=== PATIENT | female | born 1980 | race Caucasian/White ===

== ENCOUNTER 2016-06-04 11:12 | Emergency (ER) | payer OTHER ==
[~2016-06-04] VITALS: Ht 157.5 cm; Wt 56.7 kg
--- NOTE | 2016-06-04 11:48 | ED UPPER/LOWER EXTREMITY COMPL ---
History of Present Illness General Chief Complaint: General Adult Stated Complaint: RIGO HAND NUMBNESS, DIZZY Source: patient, old records Exam Limitations: no limitations Vital Signs & Intake/Output Vital Signs & Intake/Output Vital Signs Date Time Temp Pulse Resp B/P Pulse O2 O2 Flow FiO2 Ox Delivery Rate 06/04 1346 96.7 53 16 120/67 100 Room Air 06/04 1238 Room Air Room Air 06/04 1120 97.0 68 20 121/79 99 Room Air Allergies Coded Allergies: NO KNOWN ALLERGIES (10/02/10) Reconcile Medications Aspirin (Aspirin*) 81 MG TAB.CHEW 1 TAB PO DAILY HEART HEALTH (Reported) Triage Note: PT TO ED C/O "I JUST DON'T FEEL GOOD". PT C/O B/L HAND NUMBNESS, AND HEAD PRESSURE. PT SAW VASCULAR SURGEON LAST WEEK FOR LEFT ARM SWELLING, PT STATES SHE WAS GIVEN COMPRESSION STOCKINGS. PT TEARFUL STATING, "SOMETHING JUST ISN'T RIGHT." Triage Nurses Notes Reviewed? yes Onset: Gradual Duration: constant (x 1 year) Timing: recent history Severity: mild, moderate Severity Numbers: 5 Pain/Injury Location: Left: Arm. Method of Injury: unknown No Modifying Factors: none Associated Symptoms: swelling : No Patient currently breastfeeds: No HPI: 36-year-old female presents to the emergency room complaining of left arm swelling that she has had a gradual onset for the past greater than one year. The patient states she was seen by a vascular physician most recently this past week in [place] at which time she states she had an ultrasound performed that showed no DVT in the arm or chest wall per the patient. They also state that a chest x-ray was performed that showed no acute abnormality. She states that the arm swelling has persisted. She is not on currently any diuretics or blood thinners. The patient states she has a history of TIAs in the past. She states that she has a history of right arm swelling which resolved after taking anti- inflammatories. She denies any leg swelling chest pain shortness of breath cough hemoptysis no recent immobility. She does not smoke Past History Travel History Traveled to [place] past 21 day No Medical History Any Pertinent Medical History? see below for history Neurological: TIA Surgical History Surgical History: non-contributory Psychosocial History What is your primary language Occitan Tobacco Use: Current Daily Use Daily Tobacco Use Amount/Type: => 5 Cigarettes daily ETOH Use: denies use Illicit Drug Use: denies illicit drug use Family History Hx Contributory? No Review of Systems Review of Systems Constitutional: Reports: see HPI. All Other Systems: Reviewed and Negative Comments Review of systems: See HPI, All other systems negative. Constitutional, no chills no fever, no malaise HEENT: No visual changes no sore throat no congestion, no ear pain Cardiovascular: No chest pain , no palpitation , no orthopnea no ankle swelling Skin, no jaundice no rashes, no change in skin Respiratory: No dyspnea no cough no sputum no hemoptysis GI: No nausea no vomiting, no diarrhea, : No dysuria Muscle skeletal: No joint pain, no back pain, no neck pain, Neurologic: No numbness, no headache Psych: No stress Heme/endocrine: No bruising no bleeding Immunology: No lymphadenopathy Physical Exam Physical Exam General Appearance: well developed/nourished, alert, awake Comments: Well-developed well-nourished person in no acute distress HEENT: Normal EENT exam; PERRL, EOMI, HEAD is atraumatic. moist mucous membranes. Neck: Supple, normal range of motion Back: Nontender, no CVA tenderness. Full range of motion Cardiovascular: Regular rate and rhythms no murmurs rubs or gallops, normal JVP Respiratory: Chest nontender.There were no bony deformities, no asymmetry. No respiratory distress. Patient speaking in full complete sentences. Breath sounds clear to auscultation bilaterally: NO W/R/R Abdomen: Soft, nontender nondistended, no appreciable organomegaly. Normal bowel sounds. No rebound/guarding, No appreciable enlargement of the abdominal aorta, No ascites. Shoulder: Atraumatic/Stable. FROM . Elbow: Atraumatic/stable. FROM. No laxity Upper arm/Forearm: Atraumatic. Nontender. 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 Skin intact. FROM both active and passive Pulses: Normal/equal radial pulses bilaterally. Brisk cap refill Lower Extremity: No edema, full range of motion of extremities, normal and equal pulses bilaterally, 5 out of 5 strength noted to bilateral upper and lower extremities Neuro: Alert oriented x3, motor sensory normal, cranial nerves II through XII grossly intact. There were no obvious focal neurologic abnormalities. Skin: No appreciable rash on exposed skin, skin is warm and dry. Psych: Mood and affect is normal, memory and judgment is normal. Progress Differential Diagnosis: arterial insufficiency, cellulitis, compartment syndrome , contusion, DVT, fracture, tendon injury, THORACIC OUTLET SYNDROME Plan of Care: Orders Procedure Date/time Status HUMAN BETA HCG SCREEN 06/04 1214 Complete COMPREHENSIVE METABOLIC PANEL 06/04 1214 Complete CBC WITHOUT DIFFERENTIAL 06/04 1214 Complete Laboratory Tests 06/04/16 1220: Anion Gap 9, Estimated GFR > 60, BUN/Creatinine Ratio 13.3, Glucose 89, Calcium 9.7, Total Bilirubin 0.6, AST 23, ALT 23, Alkaline Phosphatase 50, Total Protein 7.7, Albumin 4.6, Globulin 3.1, Albumin/Globulin Ratio 1.5, Total Beta HCG NEGATIVE, CBC w Diff MAN DIFF ORDERED, RBC 4.50, MCV 88.3, MCH 30.0, RDW 12.7, MPV 9.4, Gran % 61.5, Lymphocytes % 33.5, Monocytes % 3.9, Eosinophils % 0.8, Basophils % 0.3, Absolute Granulocytes 3.9, Absolute Lymphocytes 2.1, Absolute Monocytes 0.3, Absolute Eosinophils 0.1, Absolute Basophils 0, Platelet Estimate ADEQUATE, Normocytic RBCs VERIFIED, Normochromic RBCs VERIFIED, PUBS MCHC 34.0 Labs ordered old records reviewed CAT scan ordered case discussed with Dr. Aldridge Ultrasound from June 2015 was reviewed of the left upper extremity, patient states that she had a Doppler ultrasound of the upper extremity and chest wall performed at the vascular physician's office and trouble this past week. Discussed with patient playful for lab results CT findings. Given the patient was recently seen by vascular including having a per the patient negative ultrasound performed. I believe the patient requires repeat Doppler today/Close follow up with her vascular surgeon continue with NSAID use elevation return at anytime sooner with any concerns worsening pain swelling numbness tingling or skin changes she feels comfortable with this plan (ADEEL TURPIN,VALERI) Diagnostic Imaging: Viewed by Me: CT Scan. Discussed w/RAD: CT Scan. Radiology Impression: PATIENT: KINGA MORGAN PRESENT AGE: 36 PATIENT ACCOUNT NO: [id number] : 82 LOCATION: [facility] ORDERING PHYSICIAN: VALERI TURPIN SERVICE DATE: 06/04/16 EXAM TYPE: CAT - CTA CHEST EXAMINATION: CT ANGIOGRAM CHEST CLINICAL INFORMATION: Left arm swelling. Pain. Numbness. Rule out question thoracic outlet syndrome. COMPARISON: None TECHNIQUE: Multiple axial images were obtained through the chest after the administration of 50 mL of Optiray 320 intravenous contrast. Images were obtained both in the arterial and delayed venous phases of enhancement. Delayed phases were obtained through the lower cervical and upper thoracic regions only. Images were reviewed with MIP reconstructions performed on a separate workstation by the interpreting radiologist. 3-dimensional reconstructed images from a separate workstation were submitted. DLP: 470.6 mGy-cm FINDINGS: Vascular : There is normal in size. Pulmonary arteries are patent without emboli or abnormal caliber. Pulmonary veins are unremarkable. Thoracic aorta is normal in course and caliber. No aneurysmal dilatation or dissection. There is a normal three-vessel branching pattern to the thoracic aorta. As seen on image 167/609 of series 2, the left anterior scalene produces mild mass effect upon the anterior margin of the subclavian artery at the thoracic outlet. This is symmetric with the contralateral side. No stenosis. No synechiae or thromboses. The axillary and brachial arteries are unremarkable. The bilateral carotid, bilateral vertebral, and the right brachiocephalic, axillary, and brachial arteries are unremarkable. On the delayed images, the left subclavian and basilic veins are patent without evidence of thrombus or adhesions/synechiae. Upper thoracic venous structures are unremarkable. Nonvascular: Lungs are clear aside from scarring at the inferior aspects of the right middle lobe and lingula. Central airways are clear. No nodularity. No pleural effusions. Mediastinum is unremarkable. No adenopathy. Axilla and chest wall are unremarkable. Imaged portion of the upper abdomen is unremarkable. Cervical soft tissues are unremarkable. There is mild degenerative spondylosis in the cervical spine. Degenerative disc disease in the lower thoracic spine is also mild. Multiple Schmorl's nodes are present. No fracture or malalignment. Sternal wires are present, consistent with prior median sternotomy. IMPRESSION: No convincing CT findings of thoracic outlet syndrome the anterior scalene to produce mild mass effect upon the subclavian arteries at the thoracic outlet bilaterally, likely within normal limits. Subclavian veins are normal. No stenoses. MRI may prove more sensitive or specific, particularly if performed with the arms in hyperabduction and external rotation. Otherwise normal CTA of the chest. DICTATED BY: SULMA VERDE MD DATE/TIME DICTATED:06/04/161357 PLUMBING ASSEMBLER INSTALLER:ALEKSANDR DATE/TIME TRANSCRIBED:06/04/161357 CONFIDENTIAL, DO NOT COPY WITHOUT APPROPRIATE AUTHORIZATION. <Electronically signed in Other Vendor System> SIGNED BY: SULMA VERDE MD 06/04/16 1426 Departure Departure Time of Disposition: 1453 Disposition: HOME OR SELF CARE Condition: Stable Clinical Impression Primary Impression: Lymphedema of arm Referrals: ELEAZAR LEUNG,Debi RICE (PCP/Family) Additional Instructions: FOLLOW UP WITH YOUR VASCULAR PHYSICIAN THIS WEEK. KEEP ARM ELEVATED, CONTINUE TAKING IBUPROFEN FOR PAIN/SWELLING. RETURN AT ANYTIME SOONER IF YOU DEVELOP WORSENING PAIN, SWELLING, NUMBNESS, TINGLING, SKIN CHANGES OR ANY OTHER CONCERNS Departure Forms: Customer Survey General Discharge Information TAKING IBUPROFEN FOR PAIN/SWELLING. RETURN AT ANYTIME SOONER IF YOU DEVELOP WORSENING PAIN, SWELLING, NUMBNESS, TINGLING, SKIN CHANGES OR ANY OTHER CONCERNS Departure Forms: Customer Survey General Discharge Information
[2016-06-04] MEDS ORDERED: ASPIRIN81 M4 PO (11:53)
[2016-06-04 12:52] LABS: ABSOLUTE BASOPHIL COUNT 0 /CUMM (0.0-0.2); ABSOLUTE EOSINOPHIL COUNT 0.1 /CUMM (0.0-0.7); ABSOLUTE GRANULOCYTE CT 3.9 /CUMM (1.4-6.5); ABSOLUTE LYMPH COUNT 2.1 /CUMM (1.2-3.4); ABSOLUTE MONOCYTE COUNT 0.3 /CUMM (0.10-0.60); BASOPHIL % 0.3 % (0.0-2.0); EOSINOPHIL % 0.8 % (0-5); GRANULOCYTE % 61.5 % (42.2-75.2); HEMATOCRIT 39.8 % (37-47); MEAN CORPUSCULAR VOLUME 88.3 FL (81.0-99.0); MEAN PLATELET VOLUME 9.4 FL (7.4-10.4); PLATELET COUNT 190 /CUMM (130-400); RBC DISTRIBUTION WIDTH 12.7 % (11.5-14.5); WHITE BLOOD CELL COUNT 6.4 /CUMM (4.8-10.8)
[2016-06-04 13:46] VITALS: BP 120/67
--- NOTE | 2016-06-04 14:26 | CT SCAN REPORT ---
EXAMINATION: CT ANGIOGRAM CHEST CLINICAL INFORMATION: Left arm swelling. Pain. Numbness. Rule out question thoracic outlet syndrome. COMPARISON: None TECHNIQUE: Multiple axial images were obtained through the chest after the administration of 50 mL of Optiray 320 intravenous contrast. Images were obtained both in the arterial and delayed venous phases of enhancement. Delayed phases were obtained through the lower cervical and upper thoracic regions only. Images were reviewed with MIP reconstructions performed on a separate workstation by the interpreting radiologist. 3-dimensional reconstructed images from a separate workstation were submitted. DLP: 470.6 mGy-cm FINDINGS: Vascular: There is normal in size. Pulmonary arteries are patent without emboli or abnormal caliber. Pulmonary veins are unremarkable. Thoracic aorta is normal in course and caliber. No aneurysmal dilatation or dissection. There is a normal three-vessel branching pattern to the thoracic aorta. As seen on image 167/609 of series 2, the left anterior scalene produces mild mass effect upon the anterior margin of the subclavian artery at the thoracic outlet. This is symmetric with the contralateral side. No stenosis. No synechiae or thromboses. The axillary and brachial arteries are unremarkable. The bilateral carotid, bilateral vertebral, and the right brachiocephalic, axillary, and brachial arteries are unremarkable. On the delayed images, the left subclavian and basilic veins are patent without evidence of thrombus or adhesions/synechiae. Upper thoracic venous structures are unremarkable. Nonvascular: Lungs are clear aside from scarring at the inferior aspects of the right middle lobe and lingula. Central airways are clear. No nodularity. No pleural effusions. Mediastinum is unremarkable. No adenopathy. Axilla and chest wall are unremarkable. Imaged portion of the upper abdomen is unremarkable. Cervical soft tissues are unremarkable. There is mild degenerative spondylosis in the cervical spine. Degenerative disc disease in the lower thoracic spine is also mild. Multiple Schmorl's nodes are present. No fracture or malalignment. Sternal wires are present, consistent with prior median sternotomy. IMPRESSION: No convincing CT findings of thoracic outlet syndrome the anterior scalene to produce mild mass effect upon the subclavian arteries at the thoracic outlet bilaterally, likely within normal limits. Subclavian veins are normal. No stenoses. MRI may prove more sensitive or specific, particularly if performed with the arms in hyperabduction and external rotation. Otherwise normal CTA of the chest.
== END 2016-06-04 15:04 ==
LOC: ERH 11:12
PROVIDERS: Physician Assistant Medical
DX: I89.0 Lymphedema, not elsewhere classified (principal)